=== PATIENT | male | born 1995 | race Caucasian/White ===

== ENCOUNTER 2021-12-15 11:15 | Emergency (ER) | payer BC ==
[2021-12-15 11:23] VITALS: RESP 18
--- NOTE | 2021-12-15 12:51 | XR ---
EXAMINATION TYPE: XR ankle complete RT DATE OF EXAM: 12/15/2021 COMPARISON: NONE HISTORY: Pain TECHNIQUE: Frontal, lateral and oblique images of the right ankle are obtained. COMPARISON: None. FINDINGS: There is no acute fracture/dislocation evident. The joint spaces appear within normal jones its. The overlying soft tissue appears unremarkable. IMPRESSION: There is no acute fracture or dislocation seen.
--- NOTE | 2021-12-15 12:53 | XR ---
EXAMINATION TYPE: XR foot complete RT DATE OF EXAM: 12/15/2021 CLINICAL HISTORY: pain TECHNIQUE: Frontal, lateral and oblique images of the right foot are obtained. COMPARISON: None. FINDINGS: Tiny ossific density adjacent to the medial head of the proximal phalanx great toe. Tiny av ulsion fractures difficult to exclude. Correlate clinically. The joint spaces appear within normal l imits. The overlying soft tissue appears unremarkable. IMPRESSION: Tiny ossific density adjacent to the medial head of the proximal phalanx great toe. Tiny avulsion fra ctures difficult to exclude. Correlate clinically.
--- NOTE | 2021-12-15 13:12 | ED ---
General Adult HPI - General Chief complaint: Fall Stated complaint: Roof fall/foot injury Time Seen by Provider: 12/15/21 12:00 Source: patient, RN notes reviewed, old records reviewed Mode of arrival: wheelchair Limitations: no limitations - History of Present Illness Initial comments: This is a 26-year-old male who presents emergency department complaining of right foot pain and right ankle pain. Patient states she was on a roof he slid down the road and went off the edge and landed on his feet. Patient states he has right foot and right ankle pain. Patient denies any head or neck trauma. Patient denies any back pain. Patient denies any hip pain. Patient denies any knee pain. Patient denies any pain on the other leg. Patient only complains of ankle pain both medial and laterally as well as anterior foot pain. - Related Data Previous Rx's Medication Instructions Recorded Ibuprofen [Motrin] 600 mg PO Q6HR PRN #20 tab 12/15/21 Allergies Allergy/AdvReac Type Severity Reaction Status Date / Time No Known Allergies Allergy Verified 12/15/21 11:23 Review of Systems ROS Statement: Those systems with pertinent positive or pertinent negative responses have been documented in the HPI. ROS Other: All systems not noted in ROS Statement are negative. Past Medical History Past Medical History: No Reported History History of Any Multi-Drug Resistant Organisms: None Reported Past Surgical History: No Surgical Hx Reported Past Psychological History: No Psychological Hx Reported Smoking Status: Never smoker Past Alcohol Use History: None Reported Past Drug Use History: None Reported General Exam - General Exam Comments Initial Comments: GENERAL: Patient is well-developed and well-nourished. Patient is nontoxic and well-hy drated and is in mild distress. ENT: Neck is soft and supple. No significant lymphadenopathy is noted. Oropharynx is clear. Moist mucous membranes. Neck has full range of motion without eliciting any pain. EYES: The sclera were anicteric and conjunctiva were pink and moist. Extraocular movements were intact and pupils were equal round and reactive to light. Eyelids were unremarkable. PULMONARY: Unlabored respirations. Good breath sounds bilaterally. No audible rales rhonchi or wheezing was noted. CARDIOVASCULAR: There is a regular rate and rhythm without any murmurs gallops or rubs. ABDOMEN: Soft and nontender with normal bowel sounds. SKIN: Skin is clear with no lesions or rashes and otherwise unremarkable. NEUROLOGIC: Patient is alert and oriented x3. Cranial nerves II through XII are grossly intact. Motor and sensory are also intact. Normal speech, volume and content. Symmetrical smile. MUSCULOSKELETAL: Patient has tenderness on the lateral and medial malleolus as well as anterior proximal foot LYMPHATICS: No significant lymphadenopathy is noted PSYCHIATRIC: Normal psychiatric evaluation. Limitations: no limitations Course Vital Signs 12/15/21 11:18 Temperature 97.6 F Pulse Rate 86 Respiratory 18 Rate Blood Pressure 165/87 O2 Sat by Pulse 99 Oximetry Medical Decision Making - Medical Decision Making X-ray of the ankle shows no acute abnormality. X-ray of the foot shows no acute abnormality. I suggest the patient wear a splint he refused were splint he states he rather try to walk out if it continues to bother him until follow-up. Disposition Clinical Impression: Strain of foot, Ankle strain Disposition: HOME SELF-CARE Instructions (If sedation given, give patient instructions): Ankle Strain (ED) Additional Instructions: Patient should weight-bear as tolerated. Patient should follow-up in 4-5 days if pain persists. Prescriptions: Ibuprofen [Motrin] 600 mg PO Q6HR PRN #20 tab PRN Reason: For pain Is patient prescribed a controlled substance at d/c from ED?: No Referrals: None,Stated [Primary Care Provider] - 1-2 days Time of Disposition: 13:12
[2021-12-15 13:39] VITALS: BP 122/83; PULSE 88; TEMP 97.8
== END 2021-12-15 13:38 | disposition home or self-care (01) ==
LOC: EC 11:15
DX: S96.911A Strain of unspecified muscle and tendon at ankle and foot level, right foot, initial encounter (principal); W01.0XXA Fall on same level from slipping, tripping and stumbling without subsequent striking against object, initial encounter
CPT/HCPCS: 99283; 73610; 73630; L4350